=== PATIENT | female | born 1970 | race African-American/Black ===

== ENCOUNTER 2017-12-09 20:58 | Emergency (ER) | payer OTHER, SELFPAY ==
[2017-12-09] MEDS ORDERED: FENTANYL CITR 100 MCG/2 ML ONE (22:21)
[2017-12-09] MEDS ORDERED: cloNIDine HCl 0.1 MG TAB ONE (22:22)
[2017-12-09] MEDS ORDERED: GENTAMICIN 0.3% OPTH DROP 5ML ONE (22:22)
--- NOTE | 2017-12-09 23:21 | ER ---
Nurse's Notes [facility] Name: Rissa oLng Age: 47 yrs Sex: Female : 1970 Arrival Date: 12/09/2017 Time: 21:02 Bed 14 Private MD: Diagnosis: Conjunctivitis;Essential (primary) hypertension Presentation: 12/09 21:12 Presenting complaint: Patient states: Reports right eye was blood shot this AM and she ea has been having sensitivity to light. Transition of care: patient was not received from another setting of care. Onset of symptoms was December 09, 2017. Risk Assessment: Do you want to hurt yourself or someone else? Patient reports no desire to harm self or others. Initial Sepsis Screen: Does the patient meet any 2 criteria? No. Patient's initial sepsis screen is negative. Does the patient have a suspected source of infection? No. Patient's initial sepsis screen is negative. Care prior to arrival: Medication(s) given: Tylenol. 21:12 Method Of Arrival: Ambulatory ea 21:12 Acuity: MAHESH 4 ea Triage Assessment: 21:14 General: Appears uncomfortable, Behavior is cooperative, appropriate for age. Pain: ea Denies pain. EENT: Eyes are tearing on outer aspect of conjuctiva of right eye and inner aspect of conjuctiva of right eye Sclera/Cornea are reddened in outer aspect of conjuctiva of right eye and inner aspect of conjuctiva of right eye. 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 - Social history:: Smoking status: Patient/guardian denies using tobacco. - Ebola Screening: : No symptoms or risks identified at this time. Screenin:16 Abuse screen: Denies threats or abuse. Nutritional screening: No deficits noted. jd3 Tuberculosis screening: No symptoms or risk factors identified. Fall Risk Ambulatory Aid- None/Bed Rest/Nurse Assist (0 pts). Gait- Normal/Bed Rest/Wheelchair (0 pts) Mental Status- Oriented to own ability (0 pts). Total Edouard Fall Scale indicates No Risk (0-24 pts). 21:16 Abuse screen: Denies threats or abuse. Nutritional screening: No deficits noted. ea Tuberculosis screening: No symptoms or risk factors identified. Fall Risk None identified. Assessment: 21:11 General: Appears uncomfortable, Behavior is calm, cooperative, appropriate for age. jd3 Pain: Complains of pain in right eye Pain does not radiate. Quality of pain is described as aching, sharp, Aggravated by light. Neuro: Level of Consciousness is awake, alert, obeys commands, Oriented to person, place, time, situation. Cardiovascular: Capillary refill < 3 seconds Patient's skin is warm and dry. Respiratory: Airway is patent Respiratory effort is even, unlabored, Respiratory pattern is regular, symmetrical. GI: Abdomen is round Abd is soft and non tender X 4 quads. Patient currently denies abdominal pain. : No signs and/or symptoms were reported regarding the genitourinary system. EENT: No signs and/or symptoms were reported regarding the EENT system. Derm: Skin is intact, Skin is dry, Skin is normal, Skin temperature is warm. Musculoskeletal: Circulation, motion, and sensation intact. Range of motion: intact in all extremities. 22:39 Reassessment: Patient appears in no apparent distress at this time. Patient and/or jd3 family updated on plan of care and expected duration. Pain level reassessed. Patient is alert, oriented x 3, equal unlabored respirations, skin warm/dry/pink. 23:29 Reassessment: Patient appears in no apparent distress at this time. Patient and/or jd3 family updated on plan of care and expected duration. Pain level reassessed. Patient is alert, oriented x 3, equal unlabored respirations, skin warm/dry/pink. pt reported understanding of discharge instructions. even and steady gait upon discharge. Patient states feeling better. Vital Signs: 21:15 BP 174 / 104; Pulse 98; Resp 18; Temp 98.4; Pulse Ox 99% on R/A; Weight 113.4 kg; ea Height 5 ft. 8 in. (172.72 cm); Pain 0/10; 22:39 BP 151 / 86; Pulse 83; Resp 17 S; Pulse Ox 100% on R/A; jd3 23:32 BP 143 / 88; Pulse 80; Resp 16 S; Pulse Ox 98% on R/A; jd3 21:15 Body Mass Index 38.01 (113.40 kg, 172.72 cm) tee Visual Acuity: 21:20 Left Eye Visual acuity 20/20, Pupil size 3 mm, Normal, React To Light, Reactive To jd3 Accomodation; Right Eye Visual acuity 20/20, Pupil size 3 mm, Normal, React To Light, Reactive To Accomodation; Both Eyes Visual acuity 20/20; Without Lenses; ED Course: 21:02 Patient arrived in ED. ds1 21:11 Berny Birch, RN is Primary Nurse. jd3 21:13 Triage completed. ea 21:16 Arm band placed on right wrist. ea 21:16 Patient has correct armband on for positive identification. Bed in low position. Call jd3 light in reach. Side rails up X 1. Adult w/ patient. 21:26 Carolin Narayan FNP-C [facility]. snw 21:26 Tito Christensen MD is Attending Physician. snw 23:19 Natalie Downs MD is Referral Physician. snw 23:31 No provider procedures requiring assistance completed. Patient did not have IV access jd3 during this emergency room visit. Administered Medications: 22:26 Drug: fentaNYL (PF) 75 mcg Route: IM; Site: right deltoid; jd3 23:31 Follow up: Response: No adverse reaction; Pain is decreased jd3 22:26 Drug: Gentamicin Drops 0.3 % 2 drops Route: Ophthalmic; Site: right eye; jd3 23:31 Follow up: Response: No adverse reaction jd3 22:27 Drug: cloNIDine 0.1 mg Route: PO; jd3 23:31 Follow up: Response: No adverse reaction jd3 Outcome: 23:20 Discharge ordered by . snw 23:31 Discharged to home ambulatory, with family. jd3 23:31 Condition: stable 23:31 Discharge instructions given to patient, family, Instructed on discharge instructions, follow up and referral plans. Demonstrated understanding of instructions, follow-up care. 23:32 Patient left the ED. jd3 Signatures: Carolin Narayan FNP-C LOFT PATTERNMAKER-Csnw Lilian Watkins ds1 Wendy Yuan RN RN ea Davies, Jonathon, RN RN jd3
--- NOTE | 2017-12-09 23:21 | EDPHYS ---
Physician Documentation [facility] Name: Rissa Long Age: 47 yrs Sex: Female : 1970 Arrival Date: 12/09/2017 Time: 21:02 Bed 14 Private MD: ED Physician Tito Christensen HPI: 12/09 22:52 This 47 yrs old Black Female presents to ER via Ambulatory with complaints of Redness snw of Eye, Eyes Sensitive to Light. 22:52 The patient is experiencing matting or discharge, pain, redness, The patient sustained snw None. to the right eye, caused by an unknown mechanism. Onset: The symptoms/episode began/occurred suddenly, this morning. Duration: the symptoms are continuous. Associated signs and symptoms: Pertinent positives: None. Patient does not utilize any form of vision correction. Severity of symptoms: At their worst the symptoms were moderate in the emergency department the symptoms are unchanged. The patient has not experienced similar symptoms in the past. It is unknown whether or not the patient has recently seen a physician. visual acuity each eye and bilaterally 20/20. 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 - Social history:: Smoking status: Patient/guardian denies using tobacco. - Ebola Screening: : No symptoms or risks identified at this time. ROS: 22:51 Constitutional: Negative for fever, chills, and weight loss, ENT: Negative for injury, snw pain, and discharge, Neck: Negative for injury, pain, and swelling, Cardiovascular: Negative for chest pain, palpitations, and edema, Respiratory: Negative for shortness of breath, cough, wheezing, and pleuritic chest pain, Abdomen/GI: Negative for abdominal pain, nausea, vomiting, diarrhea, and constipation, Back: Negative for injury and pain, : Negative for injury, bleeding, discharge, and swelling, MS/Extremity: Negative for injury and deformity, Skin: Negative for injury, rash, and discoloration, Neuro: Negative for headache, weakness, numbness, tingling, and seizure. 22:51 Eyes: Positive for pain, photophobia, redness, of the outer aspect of conjuctiva of right eye and inner aspect of conjuctiva of right eye. Exam: 22:18 Constitutional: This is a well developed, well nourished patient who is awake, alert, snw and in no acute distress. Head/Face: Normocephalic, atraumatic. ENT: Nares patent. No nasal discharge, no septal abnormalities noted. Tympanic membranes are normal and external auditory canals are clear. Oropharynx with no redness, swelling, or masses, exudates, or evidence of obstruction, uvula midline. Mucous membranes moist. Neck: Trachea midline, no thyromegaly or masses palpated, and no cervical lymphadenopathy. Supple, full range of motion without nuchal rigidity, or vertebral point tenderness. No Meningismus. Chest/axilla: Normal chest wall appearance and motion. Nontender with no deformity. No lesions are appreciated. Cardiovascular: Regular rate and rhythm with a normal S1 and S2. No gallops, murmurs, or rubs. Normal PMI, no JVD. No pulse deficits. Respiratory: Lungs have equal breath sounds bilaterally, clear to auscultation and percussion. No rales, rhonchi or wheezes noted. No increased work of breathing, no retractions or nasal flaring. Abdomen/GI: Soft, non-tender, with normal bowel sounds. No distension or tympany. No guarding or rebound. No evidence of tenderness throughout. Back: No spinal tenderness. No costovertebral tenderness. Full range of motion. Skin: Warm, dry with normal turgor. Normal color with no rashes, no lesions, and no evidence of cellulitis. MS/ Extremity: Pulses equal, no cyanosis. Neurovascular intact. Full, normal range of motion. Neuro: Awake and alert, GCS 15, oriented to person, place, time, and situation. Cranial nerves II-XII grossly intact. Motor strength 5/5 in all extremities. Sensory grossly intact. Cerebellar exam normal. Normal gait. Psych: Awake, alert, with orientation to person, place and time. Behavior, mood, and affect are within normal limits. 22:18 Eyes: Periorbital structures: appear normal, Pupils: no acute changes, shape is regular, Extraocular movements: intact throughout, Conjunctiva: injected, in the right eye, Corneas: are normal, Sclera: no appreciated abnormality. Vital Signs: 21:15 BP 174 / 104; Pulse 98; Resp 18; Temp 98.4; Pulse Ox 99% on R/A; Weight 113.4 kg; ea Height 5 ft. 8 in. (172.72 cm); Pain 0/10; 22:39 BP 151 / 86; Pulse 83; Resp 17 S; Pulse Ox 100% on R/A; jd3 23:32 BP 143 / 88; Pulse 80; Resp 16 S; Pulse Ox 98% on R/A; jd3 21:15 Body Mass Index 38.01 (113.40 kg, 172.72 cm) ea Visual Acuity: 21:20 Left Eye Visual acuity 20/20, Pupil size 3 mm, Normal, React To Light, Reactive To jd3 Accomodation; Right Eye Visual acuity 20/20, Pupil size 3 mm, Normal, React To Light, Reactive To Accomodation; Both Eyes Visual acuity 20/20; Without Lenses; MDM: 21:26 Patient medically screened. [facility] 23:21 Data reviewed: vital signs, nurses notes. Data interpreted: Pulse oximetry: on room air snw is 100 %. Interpretation: normal. Counseling: I had a detailed discussion with the patient and/or guardian regarding: the historical points, exam findings, and any diagnostic results supporting the discharge/admit diagnosis, the presence of at least one elevated blood pressure reading (>120/80) during this emergency department visit, the need for outpatient follow up, to return to the emergency department if symptoms worsen or persist or if there are any questions or concerns that arise at home. Special discussion: I have referred the patient to see his PCP for further evaluation of high blood pressure. Based on the history and exam findings, there is no indication for further emergent testing or inpatient evaluation. I discussed with the patient/guardian the need to see the opthamologist for further evaluation of the symptoms, I discussed with the patient/guardian the need to see the primary care provider for further evaluation of the symptoms. Administered Medications: 22:26 Drug: fentaNYL (PF) 75 mcg Route: IM; Site: right deltoid; jd3 23:31 Follow up: Response: No adverse reaction; Pain is decreased jd3 22:26 Drug: Gentamicin Drops 0.3 % 2 drops Route: Ophthalmic; Site: right eye; jd3 23:31 Follow up: Response: No adverse reaction jd3 22:27 Drug: cloNIDine 0.1 mg Route: PO; jd3 23:31 Follow up: Response: No adverse reaction jd3 Disposition: 12/10 08:32 Co-signature as Attending Physician, Tito Christenesn MD I agree with the assessment and cari plan of care. Disposition: 12/09/17 23:20 Discharged to Home. Impression: Conjunctivitis, Essential (primary) hypertension. - Condition is Stable. - Discharge Instructions: Conjunctivitis (Viral and Bacterial), Hypertension, DASH Eating Plan, Managing Your High Blood Pressure. - Work release form, Medication Reconciliation Form, Thank You Letter, Antibiotic Education, Prescription Opioid Use form. - Follow up: Emergency Department; When: As needed; Reason: Worsening of condition. Follow up: Natalie Downs MD; When: 1 - 2 days; Reason: Recheck today's complaints, Continuance of care. Signatures: Tito Christensen MD MD cha Therrien, Shelly, HVAC TECHNICIAN-C HVAC TECHNICIAN-Csnw Wendy Yuan, RN Berny Larson ea, RN RN jd3 Corrections: (The following items were deleted from the chart) 12/09 23:32 23:20 12/09/2017 23:20 Discharged to Home. Impression: Conjunctivitis; Essential jd3 (primary) hypertension. Condition is Stable. Forms are Medication Reconciliation Form, Thank You Letter, Antibiotic Education, Prescription Opioid Use. Follow up: Emergency Department; When: As needed; Reason: Worsening of condition. Follow up: Natalie Downs; When: 1 - 2 days; Reason: Recheck today's complaints, Continuance of care. snw
== END 2017-12-09 23:32 | disposition home or self-care (01) ==
LOC: ER 20:58
DX: H10.9 Unspecified conjunctivitis (principal); I10 Essential (primary) hypertension; E11.9 Type 2 diabetes mellitus without complications; Z79.4 Long term (current) use of insulin
CPT/HCPCS: 96372; 99283; J3010